=== PATIENT | male | born 1970 | race Two or more races ===

== ENCOUNTER 2025-03-27 17:25 | Emergency (ER) | payer OTHER ==
[~2025-03-27] VITALS: Ht 175.3 cm; Wt 68.0 kg
[2025-03-27] MEDS ORDERED: 0.9 % SODIUM CHLORIDE 500 ML IV ONE (19:00)
[2025-03-27] MEDS ORDERED: FAMOTIDINE/PF 20 MG/2 ML VIAL IV ONE (19:00)
[2025-03-27] MEDS ORDERED: FAMOTIDINE/PF 20 MG/2 ML VIAL ONE (19:53)
[2025-03-27 20:24] LABS: BASO % 0.2 % (0.1-1.2); EOS # 0.18 (0.04-0.54); EOS % 1.9 % (0.7-7.0); LYMPH # 2.08 (1.18-3.74); LYMPH % 21.6 % (19.3-53.1); MEAN PLATELET VOLUME 9.50 fl (9.4-12.4); MONO # 0.69 (0.24-0.82); MONO % 7.2 % (4.7-12.5); NEUT # 6.64 (1.56-6.13); NEUT % 68.9 % (34.0-71.1); RED CELL DISTRIBUTION WIDTH 13.0 % (11.6-14.4)
[2025-03-27 21:05] LABS: INR 1.14
[2025-03-27 21:09] LABS: ALT/SGPT 48.0 U/L (12-78); AST/SGOT 20.0 U/L (15-37); BILIRUBIN TOTAL 0.96 mg/dL (0.3-1.2); BILIRUBIN,CONJUGATED 0.27 mg/dL (0.0-0.2); BUN CREA RATIO 12.0 (7.0-25.0); CREATININE SERUM 0.83 mg/dL (0.70-1.30); GFR 95.49; GLOBULINA 3.6 G/DL (2.4-3.5); GLUCOSE FASTING 91.0 mg/dL (65-100); OSMOLALITY SERUM 285.0 MOSM/KG (275-295)
[2025-03-27] MEDS ORDERED: OMEPRAZOLE20 M1 PO (23:37)
[2025-03-27] MEDS ORDERED: CARAFATE1 GM PO (23:37)
== END 2025-03-28 01:20 ==
LOC: ER 17:25
PROVIDERS: General Practice
DX: R10.9 Unspecified abdominal pain (principal); K80.50 Calculus of bile duct without cholangitis or cholecystitis without obstruction; R14.0 Abdominal distension (gaseous)
CPT/HCPCS: 36415; 74177; Q9965